=== PATIENT | male | born 1965 ===

== ENCOUNTER 2024-07-26 20:20 | Emergency (ER) | payer MEDICAID ==
[~2024-07-26] VITALS: Ht 182.9 cm; Wt 110.0 kg
[2024-07-26 20:25] VITALS: TEMP 98
[2024-07-26 22:19] VITALS: BP 119/80; PULSE 92; RESP 16; O2SAT 100
[2024-07-26] MEDS ORDERED: IBUP-1492 PO (23:08)
[2024-07-26] MEDS ORDERED: ACET-3385 PO (23:08)
[2024-07-27] MEDS: IBUPROFEN 600 MG TABLET PO ONE (00:01)
[2024-07-27] MEDS: ACETAMINOPHEN 500 MG TABLET PO ONE (00:02)
== END 2024-07-27 00:17 | disposition home or self-care (01) ==
LOC: EMS 20:20
DX: S83.91XA Sprain of unspecified site of right knee, initial encounter (principal); X58.XXXA Exposure to other specified factors, initial encounter; Y93.01 Activity, walking, marching and hiking; Y92.89 Other specified places as the place of occurrence of the external cause; Y99.8 Other external cause status
CPT/HCPCS: 99283